=== PATIENT | female | born 2000 | race Caucasian/White ===

== ENCOUNTER 2021-02-16 23:18 | Emergency (ER) | payer OTHER, SELFPAY ==
[2021-02-16] MEDS ORDERED: Bupivacaine 0.5% 10 ML VIAL ONE (23:40)
[2021-02-16] MEDS ORDERED: Silver Nitrate Application 1 EACH ONE (23:46)
[2021-02-16] MEDS ORDERED: Bacitracin 1 PK ONE (23:51)
[2021-02-17] MEDS ORDERED: Sulfameth/Trimethoprim DS 800-160mg TAB ONE (00:02)
== END 2021-02-17 00:05 | disposition home or self-care (01) ==
LOC: BURERS 23:18
DX: L60.0 Ingrowing nail (principal)
CPT/HCPCS: 11750; J3490

== ENCOUNTER 2021-09-28 10:57 | Emergency (ER) | payer OTHER, SELFPAY ==
[2021-09-28 11:36] LABS: Bilirubin Negative (Negative); Blood, Urine Negative (Negative); Clarity Clear (Clear); Glucose, Urine (Dipstick) Negative (Negative); Ketone, Urine Negative (Negative); Leukocyte Negative (Negative); Nitrite Negative (Negative); Protein, Urine (Dipstick) Negative (Neg-Trace); Specific Gravity, Urine 1.015 (1.005-1.030); Urobilinogen 0.2 mg/dL (Less than 2)
[2021-09-28 11:37] LABS: Pregnancy Test - Urine (BHCG) Negative (Negative); Pregu Control Background? CLEAR/WHITE (CLR/WHITE); Pregu Control Bar Appear? YES (CONTROL BAR); Specific Gravity 1.015 (1.002-1.036)
[2021-09-29 15:27] LABS: SARS-CoV-2 PCR by NAA Not Detected (NotDetected)
== END 2021-09-28 11:49 | disposition home or self-care (01) ==
LOC: BURERS 10:57
DX: A08.4 Viral intestinal infection, unspecified (principal); Z20.822 Contact with and (suspected) exposure to COVID-19
CPT/HCPCS: 81003; 81025; 99284; U0003; U0005

== ENCOUNTER 2021-10-06 13:30 | Emergency (ER) | payer SELFPAY ==
[2021-10-07 00:17] LABS: SARS-CoV-2 PCR by NAA DETECTED (NotDetected)
== END 2021-10-06 14:00 | disposition home or self-care (01) ==
LOC: BURERS 13:30
DX: U07.1 COVID-19 (principal)
CPT/HCPCS: 99283; U0003; U0005

== ENCOUNTER 2022-05-09 15:28 | Emergency (ER) | payer OTHER ==
[2022-05-09] MEDS ORDERED: Bacitracin 1 PK ONE (16:31)
== END 2022-05-09 16:30 | disposition home or self-care (01) ==
LOC: BURERS 15:28
DX: S81.811A Laceration without foreign body, right lower leg, initial encounter (principal); W26.0XXA Contact with knife, initial encounter
CPT/HCPCS: 12001